=== PATIENT | female | born 1970 | race Caucasian/White ===

== ENCOUNTER → 2021-07-01 | Day surgery (SDC) | payer OTHER ==
[~2021-07-01] VITALS: Ht 162.6 cm; Wt 68.0 kg
[~2021-07-01] MED LIST: ACETAMINOPHEN500 M1 PO; MOTRIN600 MG PO; NEURONTIN400 MG PO
== END | disposition home or self-care (01) ==
LOC: FAS 06:24
DX: Z45.2 Encounter for adjustment and management of vascular access device (principal); Z85.038 Personal history of other malignant neoplasm of large intestine; Z90.49 Acquired absence of other specified parts of digestive tract; Z88.5 Allergy status to narcotic agent; Z98.51 Tubal ligation status; Z87.891 Personal history of nicotine dependence; I10 Essential (primary) hypertension
CPT/HCPCS: J2250; J2704; J7120